=== PATIENT | male | born 1935 | race Caucasian/White ===

== ENCOUNTER 2017-02-11 08:16 | Emergency (ER) | payer MEDICARE ==
[2010-12-17 23:57] VITALS: BMI 27.1
[~2017-02-11 08:16] MED LIST: ERYTHROMYCIN OPT1 GM EACH EYE; GLUCOPHAGE500 MG PO; GLUCOTROL 5 MG T5 MG PO; NITROSTAT0.4 MG SL; PRAVACHOL40 MG PO; PRED-FORTE 1% OP5 ML EACH EYE; PRINIVIL20 MG PO; PROTONIX40 MG PO; TOPROL XL50 MG PO; VITAMIN B-121000 MCG PO; VITAMIN D5000 UNIT PO; ZYLOPRIM300 MG PO
[2017-02-11 09:03] LABS: UDS - AMPHET NEGATIVE QUAL (NEGATIVE); UDS - BARB NEGATIVE QUAL (NEGATIVE); UDS - BENZO NEGATIVE QUAL (NEGATIVE); UDS - COCAINE NEGATIVE QUAL (NEGATIVE); UDS - OPIATE NEGATIVE QUAL (NEGATIVE); UDS - PCP NEGATIVE QUAL (NEGATIVE); UDS - THC NEGATIVE QUAL (NEGATIVE)
[2017-02-11 09:24] LABS: APPEARANCE CLEAR (CLEAR); COLOR YELLOW (YELLOW); GLUCOSE NEGATIVE (NEGATIVE); KETONE MODERATE mg/dL (NEGATIVE); NITRITE NEGATIVE (NEGATIVE); PROTEIN 3+ mg/dL (NEGATIVE); SPECIFIC GRAVITY 1.015 (1.005-1.020)
[2017-02-11 09:25] LABS: BACTERIA FEW /hpf (NONE SEEN); BILIRUBIN NEGATIVE (NEGATIVE); EPITHELIAL CELLS OCC /hpf (0-5); HYALINE CAST OCC /lpf (NONE SEEN); MUCUS <1+ /lpf (NONE SEEN); RED CELLS - URINE RARE /hpf (0-5); WHITE CELLS - URINE RARE /hpf (0-5)
[2017-02-11 09:48] LABS: HEMATOCRIT 42.9 % (42.0-54.0); HEMOGLOBIN 13.9 g/dL (13.5-17.5); MCH 30.3 pg (26.0-34.0); MCHC 32.4 g/dL (31.0-37.0); MCV 93.7 fL (80.0-100.0); MEAN PLATELET VOLUME 9.7 fL (7.4-10.4); NEUTROPHILS 75.6 % (40-80); PLATELET COUNT 209 10x3/uL (130-400); RBC 4.58 10x6/uL (4.20-6.10); RDW 14.9 % (11.5-14.5); WBC 7.1 10x3/uL (4.8-10.8)
[2017-02-11 09:56] LABS: ALBUMIN 3.4 g/dL (3.4-5.0); ALKALINE PHOSPHATASE 87 U/L (46-116); ALT (SGPT) 18 U/L (10-68); BILIRUBIN - TOTAL 1.27 mg/dL (0.2-1.3); CALC OSMOLALITY 280 mosm/kg (275-300); CALCIUM 8.7 mg/dL (8.5-10.1); CARBON DIOXIDE 26.4 mmol/L (21.0-32.0); CHLORIDE - SERUM 99 mmol/L (98-107); CREATINE KINASE 47 UL (21-232); POTASSIUM - SERUM 3.6 mmol/L (3.5-5.1); PROTEIN - SERUM 6.7 g/dL (6.4-8.2); SODIUM 138 mmol/L (136-145); TROPONIN-I 0.018 ng/mL (0.000-0.060); UREA NITROGEN 16 mg/dL (7-18); eGFR NON AFRICAN AMERICAN 76 mL/min (90-120)
[2017-02-11 09:57] LABS: APTT 24.8 SECONDS (22.8-39.4)
[2017-02-11 10:00] LABS: INR 1.11 (0.85-1.17); PROTIME 14.1 SECONDS (11.6-15.0)
[2017-02-11 10:01] LABS: GLUCOSE 166 mg/dL (74-106)
== END 2017-02-11 10:27 | disposition home or self-care (01) ==
LOC: D.ER 08:16
PROVIDERS: Emergency Medicine
DX: F03.90 Unspecified dementia, unspecified severity, without behavioral disturbance, psychotic disturbance, mood disturbance, and anxiety (principal); S00.01XA Abrasion of scalp, initial encounter; S50.311A Abrasion of right elbow, initial encounter; W19.XXXA Unspecified fall, initial encounter; Y93.89 Activity, other specified; Y92.89 Other specified places as the place of occurrence of the external cause; I10 Essential (primary) hypertension

== ENCOUNTER 2017-04-02 16:52 | Inpatient (IN) | payer MEDICARE ==
[~2017-04-02] VITALS: Ht 180.3 cm; Wt 63.6 kg
--- NOTE | ~2017-04-02 | HP ---
PATIENT: FORTINO BENJAMIN MEDICAL RECORD: [id number] ACCOUNT: [id number] LOCATION:[address] : 33 ADMISSION DATE: 04/02/17 HISTORY AND PHYSICAL EXAMINATION DATE OF ADMISSION: 04/02/2017 CHIEF COMPLAINT: Tremor. HISTORY OF PRESENT ILLNESS: The patient is an 81-year-old gentleman who apparently over the past week has been staying with his children. Apparently, he has had some problems with limited range of motion on his right side. Apparently, he began experiencing what was thought to be seizure versus a stroke earlier in the day and presented for followup. PAST MEDICAL HISTORY: Significant that he has had a history of having hypertension. He has had diabetes. He has had cholecystectomy. He has had a pacemaker placed, uric acid kidney stones, and arteriosclerotic heart disease. FAMILY HISTORY: One brother had a CVA. Father of alcohol abuse. Mother's history unknown. ALLERGIES: No known drug allergies. MEDICATIONS: Include allopurinol 300 mg once a day, Aricept 5 mg once a day, lisinopril 20 mg once a day, metformin 500 mg 2 tablets in the morning and 1 at bedtime, metoprolol 50 mg 1 p.o. daily, pantoprazole 40 mg once a day, KCl 10 mEq once a day, pravastatin 40 mg once a day. SOCIAL HISTORY: The patient is accompanied by his children. He does have an upper right gaze. He is aphasic at the present time, although he appears to be awake. He does not answer spontaneously. He does have some weakness on the left side of the face, his hand harvest worker field crop strength. He is unable to follow commands. PHYSICAL EXAMINATION: EYES: Pupils equal, round, and reactive to light. His extraocular movements are intact. His nasal cavity, oral cavity, and oropharynx clear. NECK: Supple. There is no adenopathy. HEART: Has a regular rate. LUNGS: Clear. ABDOMEN: Soft, bowel sounds are positive. EXTREMITIES: Lower extremities have no edema. ASSESSMENT: Possible cerebrovascular accident versus seizure disorder, history of arteriosclerotic heart disease, diabetes mellitus, and hypertension. PLAN: The patient is admitted to the hospital. CT scan will be performed to rule out any hemorrhagic CVA. Also, the patient will have carotid Dopplers. He will be placed on Dilantin for seizure protocol. We will continue to evaluate. TRANSINT:[id number] Voice Confirmation ID: [id number] DOCUMENT ID: [id number] HISTORY AND PHYSICAL [id number] FORTINO BENJAMIN JAMES MD at 1829 CC: [id number] DICTATION DATE: 04/02/171812 LABORER DEMOLITION: 04/02/172257 DIS IN 04/02/17 [place] [id number] [place] [id number]
[2017-04-02] MEDS ORDERED: GLUCOPHAGE500 MG PO (17:39)
[2017-04-02] MEDS ORDERED: ARICEPT5 MG PO (17:40)
[2017-04-02] MEDS ORDERED: K-TAB10 MEQ PO (17:42)
[2017-04-02 17:53] VITALS: Ht 180.3 cm; Wt 63.6 kg
[2017-04-02 18:28] LABS: BASOPHILS 0.1 % (0-2); EOSINOPHILS 0.5 % (0-7); HEMATOCRIT 42.1 % (42.0-54.0); HEMOGLOBIN 13.6 g/dL (13.5-17.5); IMMATURE GRANULOCYTES 0.4 % (0-5); LYMPHOCYTES 22.5 % (15-50); MCH 30.3 pg (26.0-34.0); MCHC 32.3 g/dL (31.0-37.0); MCV 93.8 fL (80.0-100.0); MONOCYTES 7.3 % (2-11); NEUTROPHILS 69.2 % (40-80); RBC 4.49 10x6/uL (4.20-6.10); RDW 14.3 % (11.5-14.5); WBC 13.3 10x3/uL (4.8-10.8)
[2017-04-02 18:38] LABS: PLATELET COUNT 267 10x3/uL (130-400)
[2017-04-02 18:42] LABS: ALBUMIN 3.4 g/dL (3.4-5.0); ANION GAP 26.9 mmol/L (8-16); BILIRUBIN - TOTAL 0.82 mg/dL (0.2-1.3); CALCIUM 9.3 mg/dL (8.5-10.1); CARBON DIOXIDE 14.7 mmol/L (21.0-32.0); CREATININE - SERUM 1.3 mg/dL (0.6-1.3); POTASSIUM - SERUM 4.6 mmol/L (3.5-5.1); PROTEIN - SERUM 7.2 g/dL (6.4-8.2)
[2017-04-02 21:08] VITALS: BP 114/47
== END 2017-04-02 22:02 | DRG 64 ==
LOC: D.M2 16:52
PROVIDERS: Family Medicine
DX: I63.9 Cerebral infarction, unspecified (principal); I62.01 Nontraumatic acute subdural hemorrhage; R56.9 Unspecified convulsions; I10 Essential (primary) hypertension; E11.9 Type 2 diabetes mellitus without complications; Z95.0 Presence of cardiac pacemaker; I25.10 Atherosclerotic heart disease of native coronary artery without angina pectoris

== ENCOUNTER 2017-04-05 14:42 | Inpatient (IN) | payer MEDICARE ==
[~2017-04-05] VITALS: Ht 180.3 cm; Wt 58.5 kg
--- NOTE | ~2017-04-05 | DS ---
PATIENT:FORTINO BENJAMIN :31 MEDICAL RECORD: [id number] DISCHARGE SUMMARY ADMISSION DATE: 04/05/17 DISCHARGE DATE: 04/17/17 This is a discharge dated 04/17/2017 from the inpatient rehab. PRIMARY DIAGNOSIS: 1. 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 2. Oropharyngeal dysphagia. 3. Aphasic. 4. Hypertension. 5. Diabetes. 6. Hyperlipidemia. 7. Hypokalemia. HOSPITAL COURSE: Full H&P is located elsewhere on the chart on this 81-year-old male who was admitted to inpatient rehab for physical therapy and occupational therapy to improve gait, transfer skills, bed mobility, and activities of daily living to a modified independent level. He was evaluated by PT and OT and their plans of care were followed. He was seen by speech therapy for management of oropharyngeal dysphagia and aphasia. He required alf care for observation and assessment and medication administration. Fingerstick blood sugars were monitored throughout his hospital stay with appropriate adjustment in medications as needed. Electrolytes were managed by protocol. He remained on appropriate home medications. He was cooperative with therapies, progressing towards goals. Case management was involved for discharge planning. He was considered stable for discharge on 04/17/2017. DISCHARGE MEDICATIONS: As per discharge medication reconciliation. DISCHARGE DISPOSITION: The patient is discharged home. He will continue his current diet and level of activity and will have home health for continued PT, OT and alf monitoring. He will follow up with primary care and consultants as directed. At least 30 minutes was spent in this discharge activity. TRANSINT:[id number] Voice Confirmation ID: [id number] DOCUMENT ID: [id number] Dictated By: MOHIT HOLBROOK I have interviewed/examined the above patient and agree with these documented findings. MUNA FLORES MD at 1802 at 1437 CC: [id number] DICTATION DATE: 05/12/17 1606 TITLE LAWYER: 05/13/17 0217 DIS IN 04/17/17 [facility] [address] [place] [address]
[~2017-04-05 14:42] MED LIST changes: +ARICEPT5 MG PO; +K-TAB10 MEQ PO
[2017-04-05] MEDS ORDERED: ZYLOPRIM300 MG PO (15:10)
[2017-04-05] MEDS ORDERED: ARICEPT5 MG PO (15:11)
[2017-04-05] MEDS ORDERED: GLUCOTROL 5 MG T5 MG PO (15:12)
[2017-04-05] MEDS ORDERED: TOPROL XL50 MG PO (15:48)
[2017-04-05 18:03] VITALS: BP 135/74; BMI 18.0
[2017-04-05 19:45] VITALS: BP 130/55
[2017-04-06 08:29] VITALS: BP 134/89
[2017-04-06 09:20] LABS: BASOPHILS 0.1 % (0-2); HEMATOCRIT 42.4 % (42.0-54.0); HEMOGLOBIN 13.7 g/dL (13.5-17.5); IMMATURE GRANULOCYTES 0.2 % (0-5); LYMPHOCYTES 22.3 % (15-50); MCH 30.3 pg (26.0-34.0); MCHC 32.3 g/dL (31.0-37.0); MCV 93.8 fL (80.0-100.0); MEAN PLATELET VOLUME 10.2 fL (7.4-10.4); MONOCYTES 6.6 % (2-11); NEUTROPHILS 69.8 % (40-80); PLATELET COUNT 222 10x3/uL (130-400); RBC 4.52 10x6/uL (4.20-6.10); RDW 14.4 % (11.5-14.5); WBC 10.2 10x3/uL (4.8-10.8)
[2017-04-06 09:40] LABS: CALC OSMOLALITY 277 mosm/kg (275-300); CALCIUM 8.6 mg/dL (8.5-10.1); CARBON DIOXIDE 30.3 mmol/L (21.0-32.0); CHLORIDE - SERUM 98 mmol/L (98-107); POTASSIUM - SERUM 3.7 mmol/L (3.5-5.1); SODIUM 136 mmol/L (136-145); UREA NITROGEN 26 mg/dL (7-18); eGFR NON AFRICAN AMERICAN 76 mL/min (90-120)
[2017-04-06 09:41] LABS: GLUCOSE 114 mg/dL (74-106)
[2017-04-06 13:06] VITALS: Ht 180.3 cm; Wt 58.5 kg
[2017-04-06 23:08] VITALS: BP 150/72
[2017-04-07 08:07] VITALS: BP 143/73
[2017-04-07 19:56] VITALS: BP 134/58
[2017-04-08 08:00] VITALS: BP 144/67
[2017-04-08 14:55] LABS: BASOPHILS 0.1 % (0-2); EOSINOPHILS 1.2 % (0-7); HEMATOCRIT 43.9 % (42.0-54.0); IMMATURE GRANULOCYTES 0.4 % (0-5); LYMPHOCYTES 18.8 % (15-50); MCH 30.1 pg (26.0-34.0); MCHC 31.9 g/dL (31.0-37.0); MCV 94.4 fL (80.0-100.0); MEAN PLATELET VOLUME 10.2 fL (7.4-10.4); MONOCYTES 7.9 % (2-11); NEUTROPHILS 71.6 % (40-80); PLATELET COUNT 212 10x3/uL (130-400); RBC 4.65 10x6/uL (4.20-6.10); RDW 14.7 % (11.5-14.5); WBC 7.2 10x3/uL (4.8-10.8)
[2017-04-08 15:09] LABS: CALC OSMOLALITY 275 mosm/kg (275-300); CALCIUM 8.7 mg/dL (8.5-10.1); CARBON DIOXIDE 25.9 mmol/L (21.0-32.0); CHLORIDE - SERUM 101 mmol/L (98-107); CREATININE - SERUM 0.9 mg/dL (0.6-1.3); GLUCOSE 97 mg/dL (74-106); POTASSIUM - SERUM 3.9 mmol/L (3.5-5.1); SODIUM 137 mmol/L (136-145); UREA NITROGEN 19 mg/dL (7-18); eGFR NON AFRICAN AMERICAN 85 mL/min (90-120)
[2017-04-08 19:42] VITALS: BP 185/65
[2017-04-09 08:38] VITALS: BP 146/75
[2017-04-10 02:41] VITALS: BP 141/55
[2017-04-10 07:55] VITALS: BP 134/70
[2017-04-10 20:00] VITALS: BP 136/54
[2017-04-11 08:31] VITALS: BP 136/67
[2017-04-11 20:00] VITALS: BP 126/58
[2017-04-12 07:00] LABS: BASOPHILS 0.3 % (0-2); EOSINOPHILS 1.6 % (0-7); HEMATOCRIT 38.3 % (42.0-54.0); HEMOGLOBIN 12.1 g/dL (13.5-17.5); IMMATURE GRANULOCYTES 0.4 % (0-5); LYMPHOCYTES 31.9 % (15-50); MCH 29.6 pg (26.0-34.0); MCHC 31.6 g/dL (31.0-37.0); MCV 93.6 fL (80.0-100.0); MONOCYTES 10.6 % (2-11); NEUTROPHILS 55.2 % (40-80); PLATELET COUNT 219 10x3/uL (130-400); RBC 4.09 10x6/uL (4.20-6.10); RDW 14.8 % (11.5-14.5); WBC 7.1 10x3/uL (4.8-10.8)
[2017-04-12 07:27] LABS: CALC OSMOLALITY 273 mosm/kg (275-300); CALCIUM 9.1 mg/dL (8.5-10.1); CARBON DIOXIDE 28.7 mmol/L (21.0-32.0); CHLORIDE - SERUM 100 mmol/L (98-107); GLUCOSE 71 mg/dL (74-106); POTASSIUM - SERUM 4.5 mmol/L (3.5-5.1); SODIUM 136 mmol/L (136-145); UREA NITROGEN 24 mg/dL (7-18); eGFR NON AFRICAN AMERICAN 76 mL/min (90-120)
[2017-04-12 19:40] VITALS: BP 121/67
[2017-04-13 08:13] VITALS: BP 156/88
[2017-04-13 19:35] VITALS: BP 134/52
[2017-04-14 08:18] VITALS: BP 148/67
[2017-04-14 19:30] VITALS: BP 141/66
[2017-04-15 07:05] LABS: BASOPHILS 0.3 % (0-2); EOSINOPHILS 0.8 % (0-7); IMMATURE GRANULOCYTES 0.3 % (0-5); MCH 30.2 pg (26.0-34.0); MCHC 31.6 g/dL (31.0-37.0); MCV 95.5 fL (80.0-100.0); MEAN PLATELET VOLUME 9.7 fL (7.4-10.4); MONOCYTES 7.8 % (2-11); NEUTROPHILS 65.8 % (40-80); PLATELET COUNT 221 10x3/uL (130-400); RBC 3.98 10x6/uL (4.20-6.10); RDW 14.8 % (11.5-14.5); WBC 7.9 10x3/uL (4.8-10.8)
[2017-04-15 07:20] LABS: CALC OSMOLALITY 274 mosm/kg (275-300); CALCIUM 8.7 mg/dL (8.5-10.1); CARBON DIOXIDE 26.5 mmol/L (21.0-32.0); CHLORIDE - SERUM 102 mmol/L (98-107); CREATININE - SERUM 0.9 mg/dL (0.6-1.3); GLUCOSE 81 mg/dL (74-106); POTASSIUM - SERUM 4.1 mmol/L (3.5-5.1); SODIUM 137 mmol/L (136-145); UREA NITROGEN 18 mg/dL (7-18); eGFR NON AFRICAN AMERICAN 85 mL/min (90-120)
[2017-04-15 08:00] VITALS: BP 143/59
[2017-04-15 20:00] VITALS: BP 131/47
[2017-04-16 08:00] VITALS: BP 110/44
[2017-04-16] MEDS ORDERED: GLUCOPHAGE500 MG PO (10:17)
[2017-04-16 21:15] VITALS: BP 132/48
[2017-04-17 08:14] VITALS: BP 113/41
== END 2017-04-17 13:53 | disposition home health service (06) | DRG 84 ==
LOC: D.REHAB 14:42
PROVIDERS: Emergency Medicine
DX: S06.5X9A Traumatic subdural hemorrhage with loss of consciousness of unspecified duration, initial encounter (principal); R13.12 Dysphagia, oropharyngeal phase; Z98.890 Other specified postprocedural states; R26.9 Unspecified abnormalities of gait and mobility; R53.1 Weakness; R13.0 Aphagia; R56.9 Unspecified convulsions; W19.XXXA Unspecified fall, initial encounter

== ENCOUNTER 2017-04-19 13:37 | Inpatient (IN) | payer MEDICARE ==
[~2017-04-19] VITALS: Ht 180.3 cm; Wt 62.5 kg
[2017-04-19] VITALS (11 sets, daily range): BP systolic 125–152; BP diastolic 71–88; BMI 20.9
--- NOTE | ~2017-04-19 | OP ---
PATIENT NAME: FORTINO BENJAMIN MEDICAL RECORD: [id number] :31 LOCATION:D.CVI D.CV02 ADMISSION DATE:04/19/17 SURGEON: ANDREW ORTIZ MD DATE OF OPERATION: 04/20/2017 SURGEON: Andrew Ortiz MD ANESTHESIA: General, Dr. Aguila. OPERATIONS PERFORMED: 1. Pulse generator exchange. 2. Pacemaker pocket revision. PREOPERATIVE DIAGNOSIS: Pacemaker end of life. POSTOPERATIVE DIAGNOSIS: Pacemaker end of life. INDICATION FOR OPERATION: Pulse generator end of life. FINDINGS AT OPERATION: The explanted pulse generator Medtronic model #MGX725Z, serial #[id number]. Newly implanted pulse generator Medtronic model #ADDR01, serial #[id number]. ESTIMATED BLOOD LOSS: Less than 5 cc. DESCRIPTION OF PROCEDURE: After informed consent, adequate preoperative medication and evaluation, the patient was brought operating room. After induction of anesthesia and application of appropriate monitoring devices, the left chest prepped and draped in a sterile field utilizing Betadine scrub, alcohol, and Betadine solution. A Betadine-impregnated drape was also used. A 1% lidocaine was infiltrated in the left subclavicular space as well as pulse generator pocket. An incision was made and dissection was carried down to the pulse generator, which was explanted. The leads were mobilized. The leads were tested. They were felt to be good chronic leads. New pulse generator was connected to the leads after hemostasis was achieved. Pacemaker fired, captured, and sensed appropriately. The pacemaker pocket was opened medially and inferiorly to allow placement of the device in the pocket. The pocket was irrigated. Instrument count and sponge count were correct times 2. Pocket was closed in layers utilizing 3-0 Vicryl on the deep subcutaneous tissue, 5-0 subcuticular Monocryl on the skin. Sterile dressings were applied. The patient tolerated the procedure well and was transferred to CV ICU in satisfactory condition. TRANSINT:[id number] Voice Confirmation ID: [id number] DOCUMENT ID: [id number] ANDREW ORTIZ MD at 1319 CC: [id number] DICTATION DATE: 04/20/17 1011 STAPLE CUTTER: 04/20/17 1118 [place] [address]
--- NOTE | ~2017-04-19 | HEMODYNAMI ---
PATIENT:FORTINO BENJAMIN MEDICAL RECORD: [id number] : 33 LOCATION:[place] ADMISSION DATE: 04/19/17 Generatedon:04/19/201716:00 Patient name: FORTINO BENJAMIN Patient #: [id number] SSN: D OB: 1935 Date of study: 04/19/2017 Page: Of Hemodynamic Procedure Report Patient Data Patient Demographics Procedure consent was obtained First Name: FORTINO Gender: Male Last Name: SOURAV : 1935 [facility] Initial: L Age: 81 year(s) Patient #: [id number] Race: Additional ID: [id number] Contact details Address: [address] [place] [address] State: [place] City: [place] Zip code: [address] Admission Admission Data Admission Date: 04/19/2017 Admission Time: 13:37 Height (in.): 67 BSA: 1.91 (m2) Height (cm.): 170.18 BMI: 27.41 (kg/m2) Weight (lbs.): 175 Weight (kg.): 79.38 Procedure Procedure Types Cath Procedure Diagnostic Procedure LHC LHC w/Coronaries w/Grafts Temporary Pacemaker Miscellaneous Procedures Moderate Sedation up to 15 minutes Procedure Description Procedure Date Procedure Date: 04/19/2017 Procedure Start Time: 15:11 Procedure End Time: 15:42 Procedure Staff Name Function Garfield Gay MD Performing Physician Ian Decker RN Nurse Mervin Meade RT Scrub Anat Castellanos RT Monitor Procedure Data Cath Procedure Fluoroscopy Diagnostic fluoroscopy Total fluoroscopy Time: 6.2 time: 6.2 min min Diagnostic fluoroscopy Total fluoroscopy dose: dose: 1014 mGy 1014 mGy Contrast Material Contrast Material Type Amount (ml) Isovue 300 93 Entry Location Entry Primary Successful Side Size Upsize Upsize Entry Closure Succes sful Closure Location (Fr) 1 (Fr) 2 (Fr) Remarks Device Remarks Femoral Right 6 Fr sutured vein Short Femoral Right 6 Fr Exoseal artery Short Estimated blood loss: 10 ml Diagnostic catheters Device Type Used For End Catheter Placement MULTIPACK JL 4.0 5Fr Procedure catheter DIAGNOSTIC AR MOD 5Fr Procedure Catheter ([id number]) DIAGNOSTIC IMT 5Fr Procedure Catheter ([id number]) MULTIPACK Pigtail 5 Fr Ventriculography catheter Procedure Complications No complications Procedure Medications Medication Administration Route Dosage Oxygen NC 4 l/min Lidocaine 2% added to field 20 Heparin Flush Bag added to field 2 bags (1000units/500ml NS) 0.9% NaCl I.V. 100 ml/hr Versed I.V. 0.5 mg Fentanyl I.V. 25 mcg Versed I.V. 0.5 mg Fentanyl I.V. 25 mcg Hemodynamics Rest BSA: 1.91 (m2) O2 Consumption: Estimated: 222.73 (ml/min) O2 Consumption indexed : Estimated:116.61 (ml/min/m) Heart Rate: 77 (bpm) Pressure Samples Time Site Value (mmHg) Purpose Heart Use Rate(bpm) 15:34 LV 148/15,20 Snapshot 80 15:34 LV 150/13,20 EDP 84 15:36 AO 152/69(102) Pullback 80 15:36 LV 144/13,20 Pullback 80 Gradients Valve Time Site 1 Site 2 Mean SEP/DFP Peak To Heart Use (mmHg) (sec/min) Peak Rate (mmHg) (bpm) Aortic 15:35 LV AO 81 Aortic 15:36 LV AO 0 9 0 80 144/13,20 152/69(102) Calculations Valve P-P Mean Valve Index Valve Source Name Gradient Area Flow (cm2) Aortic 0 0 0 0 Snapshots Pre Cath Intra NCS Post Cath Vital Signs Time Heart Resp SPO2 etCO2 NIBP (mmHg) Rhythm Pain Sedation Rate (ipm) (%) (mmHg) Status Level (bpm) 14:54:43 38 23 96 0 163/65(130) 3 0 (11) 10(A) degree , No Heart pain Block 14:59:05 37 22 96 0 161/64(130) 3 0 (11) 10(A) degree , No Heart pain Block 15:03:27 32 17 98 0 153/66(125) 3 0 (11) 10(A) degree , No Heart pain Block 15:07:45 36 16 98 0 155/69(137) 3 0 (11) 10(A) degree , No Heart pain Block 15:12:07 29 17 98 0 151/59(100) 3 0 (11) 9(A) degree , No Heart pain Block 15:16:27 28 14 100 0 138/56(104) 3 0 (11) 9(A) degree , No Heart pain Block 15:20:37 79 18 98 0 128/73(110) Paced 0 (11) 9(A) , No pain 15:24:47 80 15 100 0 119/65(102) Paced 0 (11) 9(A) , No pain 15:28:53 77 15 100 0 131/70(100) Paced 0 (11) 9(A) , No pain 15:33:01 79 15 99 0 139/73(113) Paced 0 (11) 9(A) , No pain 15:37:11 79 15 98 0 142/73(109) Paced 0 (11) 10(A) , No pain 15:42:26 78 16 100 0 144/75(118) Paced 0 (11) 10(A) , No pain Medications Time Medication Route Dose Verified Delivered Reason Notes Effe ctiveness by by 14:56:17 Oxygen NC 4 Garfield Buffie used for l/min Victor Hugo Decker RN procedure 14:56:25 Lidocaine 2% added 20ml Garfield Garfield for local to vial Victor Hugo Gay MD anesthetic field 14:56:30 Heparin Flush added 2 Garfield Garfield used for Bag to bags Victor Hugo Gay MD procedure (1000units/500ml field NS) 14:56:38 0.9% NaCl I.V. 100 Garfield Buffie Per ml/hr Victor Hugo Decker RN physician 15:09:33 Versed I.V. 0.5 Garfield Buffie for mg Victor Hugo Decker RN sedation 15:09:39 Fentanyl I.V. 25 Garfield Buffie for mcg Victor Hugo Decker RN sedation 15:15:45 Versed I.V. 0.5 Garfield Buffie for mg Victor Hugo Decker RN sedation 15:15:49 Fentanyl I.V. 25 Garfield Buffie for mcg Victor Hugo Decker RN sedation Procedure Log Time Note 14:33:19 Informed consent obtained and on chart 14:33:22 Diagnostic Cath Status : Urgent 14:34:17 Mervin Meade RT(R) (CV) sent for patient. Start room use. 14:34:20 Time tracking: Regular hours 14:34:28 Plan of Care:Hemodynamics will remain stable., Cardiac rhythm will remain stable., Comfort level will be maintained., Respiratory function will remain adequate., Patient/ family verbilizes understanding of procedure., Procedure tolerated without complication., Recovers from procedure without complications.. 14:53:14 Patient arrives emergently. 14:53:23 Patient received from ED to [facility] 2 Alert and oriented. Tansferred to table in Supine position. 14:53:24 Warm blankets applied, and keenan hugger turned on for patient comfort. 14:53:25 Correct patient and procedure confirmed by team. 14:53:26 ECG and BP/O2 sat monitors applied to patient. 14:53:30 ECG and BP/O2 sat monitors applied to patient. 14:53:31 Vital chart was started 14:53:39 Baseline sample Acquired. 14:53:50 Rhythm: 3rd degree heart block 14:53:54 Full Disclosure recording started 14:54:10 H&P Date Dictated: 04/19/2017 Emergent; H&P N/A. 14:54:11 Pre-procedure instructions explained to patient. 14:56:17 Oxygen 4 l/min NC was administered by Ian Decker RN; used for procedure; 14:56:25 Lidocaine 2% 20ml vial added to field was administered by Garfield Gay MD; for local anesthetic; 14:56:30 Heparin Flush Bag (1000units/500ml NS) 2 bags added to field was administered by Garfield Gay MD; used for procedure; 14:56:38 0.9% NaCl 100 ml/hr I.V. was administered by Ian Decker RN; Per physician; 15:04:44 IV patent on arrival in right hand with 0.9% NaCl at [facility]. 15:04:51 Right groin area was prepped with chlora-prep and draped in sterile fashion 15:04:52 Alarms reviewed by R. N. 15:04:53 Sharps counted by scrub and verified by R.N. 15:05:08 Use device set Femoral Dx 15:05:12 Use device set Temporary Pacemaker 15:05:15 SHEATH 6FR [place] (IJU292) opened to sterile field. 15:05:24 SHEATH 6FR [place] (DXC002) opened to sterile field. 15:05:28 5Fr J Tip Temporary Pacing Catheter ([id number]) opened to sterile field. 15:05:34 PERCUTANEOUS ENTRY 19GA needle opened to sterile field. 15:05:35 Tegaderm 4 x 4 (1626W) opened to sterile field. 15:05:38 DIAGNOSTIC Multipack 5Fr catheter set (HD0021) opened to sterile field. 15:05:39 ACIST Manifold (36488) opened to sterile field. 15:05:40 ACIST Hand Control (56500) opened to sterile field. 15:05:43 DIAGNOSTIC WIRE .035 260cm J wire (549818) opened to sterile field. 15:05:48 SHEATH 5FR [place] (KMP357) opened to sterile field. 15:05:49 Medline Cath Pack ([id number]) opened to sterile field. 15:05:50 Bag Decanter (2002S) opened to sterile field. 15:05:51 ACIST Syringe (53332) opened to sterile field. 15:06:20 Patient diabetic? Yes. 15:06:22 If diabetic: On Metformin? Yes 15:06:33 If on Metformin: Last Dose? 04/17/2017 15:06:39 Snore? Yes 15:06:42 Sleep apnea? No 15:06:46 Dentures? No ? 15:08:51 Physician arrived 15:08:52 --------ALL STOP TIME OUT------ 15:08:52 Final Timeout: patient, procedure, and site verified with staff and physician. All members of the team are in agreement. 15:09:03 Right groin site verified by team. 15:09:07 Physical assessment completed. ASA score P 4 - A patient with severe systemic disease that is a constant threat to life as per Garfield Gay MD. 15:09:17 Sedation plan: IV Moderate Sedation Medication:Versed, Fentanyl 15:09:27 Zero performed for pressure channel P1 15::33 Versed 0.5 mg I.V. was administered by Ian Decker RN; for sedation; 15::39 Fentanyl 25 mcg I.V. was administered by Ian Decker RN; for sedation; 15:09:57 Zero performed for pressure channel P1 15:10:03 Zero performed for pressure channel P1 15:10:59 Procedure started. 15:11:11 Local anesthetic to right femoral artery with Lidocaine 2% by Garfield Gay MD.INITIAL ACCESS ONLY 15:13:09 Procedure type changed to Cath procedure, Diagnostic procedure, LHC, LHC w/Coronaries w/Grafts, Temporary Pacemaker, Miscellaneous Procedures, Moderate Sedation up to 15 minutes 15:13:17 Patient Height : 67 inches 15:13:29 Patient Weight : 175 lbs 15:13:41 A 6 Fr Short sheath was inserted into the Right Femoral vein 15:15:32 A 6 Fr Short sheath was inserted into the Right Femoral artery 15:15:45 Versed 0.5 mg I.V. was administered by Ian Decker RN; for sedation; 15:15:49 Fentanyl 25 mcg I.V. was administered by Ian Decker RN; for sedation; 15:16:00 Temporary pacer inserted 15:18:19 Temporary pacer turned on with the following settings: Rate 80, MA 3, Mode: Demand. 15:18:48 2.0 Silk 685H opened to sterile field. 15:19:31 RFV sutured in. 15:19:53 A MULTIPACK JL 4.0 5Fr catheter was advanced over the wire and used for Procedure. 15:22:41 LCA angiography performed. 15:24:15 Catheter removed. 15:25:28 A DIAGNOSTIC AR MOD 5Fr Catheter ([id number]) was advanced over the wire and used for Procedure. 15:26:03 RCA angiography performed. 15:27:37 SVG to OM angiography performed. 15:27:57 SVG to RPDA angiography performed. 15:28:44 Catheter removed. 15:29:40 A DIAGNOSTIC IMT 5Fr Catheter ([id number]) was advanced over the wire and used for Procedure. 15:30:09 ASCENCIO to LAD angiography performed. 15:30:31 Temporary pacer turned on with the following settings: Rate 80, MA 4, Mode: Demand. 15:32:36 Catheter removed. 15:33:21 A MULTIPACK Pigtail 5 Fr catheter was advanced over the wire and used for Ventriculography. 15:35:43 EF : 15 % 15:36:17 EXOSEAL 5Fr (EX500) opened to sterile field. 15:36:31 Catheter removed. 15:36:55 Sheath removed intact; hemostasis achieved with Exoseal to the Right Femoral artery. 15:36:58 Procedure ended.(Physican Out) 15:39:23 Fluoroscopy time 06.20 minutes. 15:39:27 Fluoroscopy dose: 1014 mGy 15:39:27 Flurop Dose total: 1014 15:39:30 Contrast amount:Isovue 300 93ml. 15:39:32 Sharps counted by scrub and verified by R.N. 15:39:33 Insertion/operative site no bleeding no hematoma. 15:39:37 Post-op/insertion site Right Femoral artery dressed using a 4 x 4 and Tegaderm. 15:39:45 Post-op/insertion site Right Femoral vein dressed using a 4 x 4 and Tegaderm. 15:39:52 Post right femoral artery:stable 15:39:55 Post Procedure Pulses reassessed and unchanged 15:40:01 Post-procedure physical assessment completed. ASA score P 4 - A patient with severe systemic disease that is a constant threat to life as per Garfield Gay MD. 15:40:13 Post procedure rhythm: paced 15:40:16 Estimated blood loss: 10 ml 15:40:17 Post procedure instruction explained to patient.Patient verbalizes understanding. 15:40:18 Patient needs reinforcement of post procedure teaching. 15:40:30 Procedure and supply charges have been captured, reviewed, submitted and are correct. 15:41:01 Procedure Complication : No complications 15:41:03 Vital chart was stopped 15:41:04 See physician's report for complete and final results. 15:41:07 Report given to CVICU. 15:41:59 Patient transfered to CVICU with Stretcher. 15:42:01 Procedure ended. 15:42:01 Full Disclosure recording stopped 15:49:30 Temp pacer set at 80 at 3MA 15:49:33 End room use (Document Last) Device Usage Item Name Manufacture Quantity Catalog Number Hospital Part Current Mini mal Lot# / Charge Number Stock Stock Serial# Code SHEATH 6FR Terumo 2 [id number] 40 [place] (EAG771) 5Fr J Tip Brunner 1 [id number] 816701 80094 869165 2 Temporary Lifesciences Pacing Catheter ([id number]) PERCUTANEOUS [place] [employer] 1 [id number] 678790 760633 5 ENTRY 19GA needle Tegaderm 4 x 3M 1 1626W 133728 857482 278131 5 4 (1626W) DIAGNOSTIC Cardinal 1 [id number] 147700 77950 127533 30 Multipack Health 5Fr catheter set (PY7081) ACIST Acist 1 98062 118872 158444 704031 5 Manifold Medical (28251) Systems Inc ACIST Hand Acist 1 11045 455236 769126 356928 5 Control Medical (89806) Systems Inc DIAGNOSTIC St [place] 1 884940 314696 532054 574495 30 WIRE .035 260cm J wire (142376) SHEATH 5FR Terumo 1 KIZ169 402644 140033 251678 40 [place] (SZF762) Medline Cath Cardinal 1 [id number] 959826 75818 029879 5 Pack Health ([id number]) Bag Decanter Microtek 1 2001S 183348 27346 467745 5 (2001S) Medical Inc. ACIST Acist 1 35438 585228 038145 379137 20 Syringe Medical (51570) Systems Inc 2.0 Silk Ethicon 1 685H 153321 78674 114610 5 685H MULTIPACK JL Cardinal 1 296788 5 4.0 5Fr Health catheter DIAGNOSTIC Cardinal 1 [id number] 946778 762652 542465 15 AR MOD 5Fr Health Catheter (312516J) DIAGNOSTIC Ruth 1 [id number] 708447 016062 73604 5 IMT 5Fr Scientific Catheter ([id number]) MULTIPACK Cardinal 1 978890 5 Pigtail 5 Fr Health catheter EXOSEAL 5Fr Cardinal 1 EX500 899915 940406 185000 10 (EX500) Health Signature Audit [place] Stage Time Signature Unsigned Intra-Procedure 04/19/2017 Anat Castellanos 4:00:23 PM RT(R) Signatures Monitor : Anat Castellanos Signature : RT Date : Time : [facility] [address] [place] [address]
[2017-04-19 13:59] LABS: BASOPHILS 0.2 % (0-2); EOSINOPHILS 0.6 % (0-7); HEMATOCRIT 39.9 % (42.0-54.0); HEMOGLOBIN 12.3 g/dL (13.5-17.5); IMMATURE GRANULOCYTES 1.2 % (0-5); LYMPHOCYTES 41.9 % (15-50); MCH 30.1 pg (26.0-34.0); MCHC 30.8 g/dL (31.0-37.0); MCV 97.8 fL (80.0-100.0); MONOCYTES 6.5 % (2-11); NEUTROPHILS 49.6 % (40-80); PLATELET COUNT 212 10x3/uL (130-400); RBC 4.08 10x6/uL (4.20-6.10); RDW 15.6 % (11.5-14.5); WBC 16.3 10x3/uL (4.8-10.8)
[2017-04-19 14:11] LABS: INR 1.22 (0.85-1.17)
[2017-04-19 14:16] LABS: ALBUMIN 3.4 g/dL (3.4-5.0); ALKALINE PHOSPHATASE 141 U/L (46-116); ALT (SGPT) 63 U/L (10-68); BILIRUBIN - TOTAL 0.71 mg/dL (0.2-1.3); CALC OSMOLALITY 300 mosm/kg (275-300); CALCIUM 9.2 mg/dL (8.5-10.1); CARBON DIOXIDE 15.1 mmol/L (21.0-32.0); CHLORIDE - SERUM 106 mmol/L (98-107); CREATININE - SERUM 1.5 mg/dL (0.6-1.3); POTASSIUM - SERUM 4.1 mmol/L (3.5-5.1); PROTEIN - SERUM 6.7 g/dL (6.4-8.2); SODIUM 143 mmol/L (136-145); UREA NITROGEN 44 mg/dL (7-18); eGFR NON AFRICAN AMERICAN 47 mL/min (90-120)
[2017-04-19 14:23] LABS: GLUCOSE 194 mg/dL (74-106)
[2017-04-19 14:32] LABS: CKMB 1.7 U/L (0.0-3.6); CREATINE KINASE 71 UL (21-232); MAGNESIUM - SERUM 2.1 mg/dL (1.8-2.4)
[2017-04-19 14:43] LABS: TROPONIN-I 0.102 ng/mL (0.000-0.060)
[2017-04-19 15:24] LABS: APTT 25.2 SECONDS (22.8-39.4)
[2017-04-19 17:17] LABS: HEMOGLOBIN 12.8 g/dL (13.5-17.5); MCH 29.8 pg (26.0-34.0); MCHC 30.5 g/dL (31.0-37.0); MCV 97.9 fL (80.0-100.0); MEAN PLATELET VOLUME 10.7 fL (7.4-10.4); RBC 4.29 10x6/uL (4.20-6.10); RDW 15.7 % (11.5-14.5)
[2017-04-19 17:24] LABS: ANION GAP 23.8 mmol/L (8-16); CALCIUM 8.8 mg/dL (8.5-10.1); CREATININE - SERUM 1.4 mg/dL (0.6-1.3)
[2017-04-19 18:02] LABS: POTASSIUM - SERUM 4.8 mmol/L (3.5-5.1)
[2017-04-20] VITALS (33 sets, daily range): BP systolic 122–150; BP diastolic 55–90; Ht 180.3 cm; Wt 62.5 kg
[2017-04-21] VITALS (45 sets, daily range): BP systolic 113–145; BP diastolic 55–95
[2017-04-22] VITALS (22 sets, daily range): BP systolic 117–150; BP diastolic 57–100
[2017-04-23] VITALS (9 sets, daily range): BP systolic 118–144; BP diastolic 58–68
== END 2017-04-23 14:18 | disposition home health service (06) | DRG 259 ==
LOC: D.ER 13:37 → D.OPS 13:37 → D.ER 13:37 → EDSTATUS 15:00 → D.CVICU 17:08 → D.OPS 17:09 → D.CVICU 17:10
PROVIDERS: Emergency Medicine; Internal Medicine Cardiovascular Disease
PROC: B2111ZZ Fluoroscopy of Multiple Coronary Arteries using Low Osmolar Contrast (ICD-10-PCS; 2017-04-19)
PROC: B2131ZZ Fluoroscopy of Multiple Coronary Artery Bypass Grafts using Low Osmolar Contrast (ICD-10-PCS; 2017-04-19)
PROC: B2151ZZ Fluoroscopy of Left Heart using Low Osmolar Contrast (ICD-10-PCS; 2017-04-19)
PROC: 4A023N7 Measurement of Cardiac Sampling and Pressure, Left Heart, Percutaneous Approach (ICD-10-PCS; 2017-04-19)
PROC: 5A1223Z Performance of Cardiac Pacing, Continuous (ICD-10-PCS; 2017-04-19)
PROC: 0JH606Z Insertion of Pacemaker, Dual Chamber into Chest Subcutaneous Tissue and Fascia, Open Approach (ICD-10-PCS; 2017-04-20)
PROC: 0JPT0PZ Removal of Cardiac Rhythm Related Device from Trunk Subcutaneous Tissue and Fascia, Open Approach (ICD-10-PCS; principal; 2017-04-20 08:00)
DX: I44.2 Atrioventricular block, complete (principal); I42.9 Cardiomyopathy, unspecified; Z45.010 Encounter for checking and testing of cardiac pacemaker pulse generator [battery]; I47.1 Supraventricular tachycardia; I25.10 Atherosclerotic heart disease of native coronary artery without angina pectoris; E11.9 Type 2 diabetes mellitus without complications; F03.90 Unspecified dementia, unspecified severity, without behavioral disturbance, psychotic disturbance, mood disturbance, and anxiety; N40.0 Benign prostatic hyperplasia without lower urinary tract symptoms; I10 Essential (primary) hypertension; Z95.1 Presence of aortocoronary bypass graft; Z95.5 Presence of coronary angioplasty implant and graft; Z86.73 Personal history of transient ischemic attack (TIA), and cerebral infarction without residual deficits

== ENCOUNTER 2017-08-12 20:05 | Emergency (ER) | payer MEDICARE ==
[2017-04-20 10:38] VITALS: BMI 20.7
[2017-08-12 20:41] LABS: BASOPHILS 0.3 % (0-2); EOSINOPHILS 0.4 % (0-7); HEMATOCRIT 38.7 % (42.0-54.0); HEMOGLOBIN 12.5 g/dL (13.5-17.5); IMMATURE GRANULOCYTES 0.3 % (0-5); LYMPHOCYTES 18.5 % (15-50); MCH 29.8 pg (26.0-34.0); MCHC 32.3 g/dL (31.0-37.0); MCV 92.1 fL (80.0-100.0); MEAN PLATELET VOLUME 9.3 fL (7.4-10.4); MONOCYTES 6.8 % (2-11); NEUTROPHILS 73.7 % (40-80); RDW 14.8 % (11.5-14.5); WBC 9.9 10x3/uL (4.8-10.8)
[2017-08-12 20:49] LABS: APTT 24.9 SECONDS (22.8-39.4); INR 1.08 (0.85-1.17); PLATELET COUNT 247 10x3/uL (130-400); PROTIME 13.6 SECONDS (11.6-15.0)
[2017-08-12 20:55] LABS: ALBUMIN 3.2 g/dL (3.4-5.0); ALKALINE PHOSPHATASE 112 U/L (46-116); ALT (SGPT) 17 U/L (10-68); CALC OSMOLALITY 280 mosm/kg (275-300); CARBON DIOXIDE 26.1 mmol/L (21.0-32.0); CHLORIDE - SERUM 101 mmol/L (98-107); GLUCOSE 130 mg/dL (74-106); POTASSIUM - SERUM 3.8 mmol/L (3.5-5.1); PROTEIN - SERUM 7.4 g/dL (6.4-8.2); SODIUM 139 mmol/L (136-145); UREA NITROGEN 15 mg/dL (7-18); eGFR NON AFRICAN AMERICAN 76 mL/min (90-120)
[2017-08-12 21:03] LABS: CREATINE KINASE 61 UL (21-232); PRO BNP 4173 pg/mL (0-450); TROPONIN-I < 0.017 ng/mL (0.000-0.060)
[2017-08-12 22:48] LABS: APPEARANCE CLEAR (CLEAR); BILIRUBIN NEGATIVE (NEGATIVE); COLOR YELLOW (YELLOW); GLUCOSE NEGATIVE (NEGATIVE); KETONE NEGATIVE (NEGATIVE); NITRITE NEGATIVE (NEGATIVE); PROTEIN NEGATIVE (NEGATIVE); UROBILINOGEN NORMAL (NORMAL)
== END 2017-08-13 00:57 | disposition other institution (70) ==
LOC: D.ER 20:05
PROVIDERS: Family Medicine
DX: J18.9 Pneumonia, unspecified organism (principal); I63.9 Cerebral infarction, unspecified; G81.91 Hemiplegia, unspecified affecting right dominant side; F03.90 Unspecified dementia, unspecified severity, without behavioral disturbance, psychotic disturbance, mood disturbance, and anxiety; I10 Essential (primary) hypertension; I25.10 Atherosclerotic heart disease of native coronary artery without angina pectoris

== ENCOUNTER 2017-12-27 08:18 | Inpatient (IN) | payer MEDICARE ==
[~2017-12-27] VITALS: Ht 180.3 cm; Wt 75.0 kg
--- NOTE | ~2017-12-27 | DS ---
PATIENT:FORTINO BENJAMIN :31 MEDICAL RECORD: [id number] DISCHARGE SUMMARY ADMISSION DATE: 12/27/17 DISCHARGE DATE: 12/29/17 DATE OF DISCHARGE: 12/28/2017 DIAGNOSES: 1. Angina. 2. Coronary artery disease. 3. Percutaneous transluminal coronary angioplasty stent of left circumflex this admission. 4. Status post coronary bypass graft surgery. 5. Hypertension. 6. Hyperlipidemia. HOSPITAL COURSE: Mr. Benjamin presents with unstable anginal symptomatology, found to have critical disease of the left circumflex, underwent successful PTCA stent of the left circumflex, had minor bleeding complication. It was resolved with FemoStop, stayed overnight. No further bleeding the next day. No further angina. Discharged home with the addition of aspirin and Plavix to his medical regimen. He will follow up with [facility] in 1 month. TRANSINT:[id number] Voice Confirmation ID: [id number] DOCUMENT ID: [id number] DA SWANSON MD at 1823 CC: [id number] DICTATION DATE: 12/28/17 1000 FOREST FIRE EQUIPMENT OPERATOR: 12/28/17 1011 DIS IN 12/29/17 [facility] [address] [place] [id number]
--- NOTE | ~2017-12-27 | OP ---
PATIENT NAME: FORTINO BENJAMIN MEDICAL RECORD: [id number] :33 LOCATION:D.M2 D.1 ADMISSION DATE:12/27/17 SURGEON: DA SWANSON MD DATE OF OPERATION: 12/27/2017 PROCEDURES: 1. PTCA stent left circumflex. 2. Left heart catheterization. 3. Selective coronary angiography. 4. Vein graft angiography. 5. ASCENCIO angiography. 6. Left ventriculogram. INDICATION: Angina and coronary artery disease. PROCEDURE IN DETAIL: After informed consent was obtained and after detailed explanation of risks, benefits as well as alternative therapies, the patient elected to proceed with angiogram and angioplasty. The right femoral area was prepped and draped in normal sterile fashion. Right femoral artery was cannulated via modified Seldinger technique with placement of 6-Greenlandic sheath. All catheters exchanged through this sheath. FINDINGS: The left ventriculogram was performed in a standard 30-degree LOPEZ view, reveals global hypokinesis throughout all segments. Overall ejection fraction is 20%. SELECTIVE CORONARY ANGIOGRAPHY: 1. Left main is with no significant angiographic disease. 2. Left anterior descending is totally occluded. 3. ASCENCIO to the LAD is widely patent. 4. Left circumflex has an 80% to 85% stenosis throughout the proximal aspect. There is a first obtuse marginal that is totally occluded. This obtuse marginal was grafted; however, does not backfill the circumflex itself. 5. Right coronary artery is totally occluded. 6. Vein graft skipping from the circumflex portion of that continuing onto the distal RCA is patent. The distal RCA is small and diffusely diseased, but patent. PTCA STENT OF THE LEFT CIRCUMFLEX: Stents used were 3.0 x 15 mm Integrity times 2. The result was 0% residual stenosis. OVERALL IMPRESSION: Successful percutaneous transluminal coronary angioplasty stent of the left circumflex going from 80% to 85% initial stenosis to 0% residual. TRANSINT:[id number] Voice Confirmation ID: [id number] DOCUMENT ID: [id number] OPERATIVE REPORT [id number] FORTINO BENJAMIN JEFFREY MD at 1823 CC: [id number] DICTATION DATE: 12/27/17 1536 WELFARE OFFICER: 12/27/17 1635 DIS IN 12/29/17 [facility] [address] [facility] [place] [address]
--- NOTE | ~2017-12-27 | CN ---
PATIENT NAME:FORTINO BENJAMIN MEDICAL RECORD: [id number] : 31 LOCATION:D.CAT ADMIT DATE: ACCOUNT: [id number] CONSULTING PHYSICIAN: DA SWANSON MD REFERRING PHYSICIAN: MAURICE MILLER MD DATE OF CONSULTATION: 12/27/2017 DIAGNOSES: 1. Unstable angina. 2. Coronary artery disease. 3. 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 4. Sick sinus syndrome, status post pacemaker. 5. Hypertension. 6. Hyperlipidemia. HISTORY OF PRESENT ILLNESS: This is a gentleman who presents with anginal symptomatology, chest pain radiating to his back, radiating to his jaw. He does have a history of coronary artery disease, coronary artery bypass graft surgery 15 years ago, status post pacemaker replacement in April of this year. The pacemaker appears to be functioning normally. He has a history of diverticulitis, but this is different than his diverticular pain. His EKG is significant for a left bundle, but it is paced from his initial EKG. He initially had T-wave inversions in the lateral leads. Now, he has upright T waves in the lateral leads, possible ST elevation. He continues to have pain. PHYSICAL EXAMINATION: GENERAL APPEARANCE: Well-nourished, well-developed, appears stated age. Level of distress, comfortable. PSYCHIATRIC: Mental status, alert, normal affect. Orientation, oriented to time, place and person. EYES: Lids and conjunctiva, noninjected. No discharge, no pallor. ENT: Lips, teeth, gums, normal dentition. Oropharynx, no cyanosis, no pallor. NECK: Carotid arteries, bilateral normal upstroke, no bruits, no thrills. JUGULAR VEINS: No jugular venous pressure or distention. CERVICAL LYMPH NODES: Nontender, nonenlarged. THYROID: Not enlarged. Nontender. No nodules. LUNGS: Respiratory effort, unlabored. CHEST: Normal curvature. No thoracic deformity. No chest wall tenderness. Percussion, resonant. Auscultation, clear. No wheezes, no rales, no rhonchi. CARDIOVASCULAR: Precordial exam, nondisplaced. No heaves or pericardial thrills. Rate and rhythm, regular. Heart sounds, normal S1, normal S2. No S3, no gallop, no rub. Systolic murmur, not heard. Diastolic murmur, not heard. EXTREMITIES: No cyanosis, no edema. Peripheral pulses, full and equal in all extremities, except as noted. No bruits appreciated. ABDOMEN: Soft, nondistended. Normal aorta. No bruit. Nontender. No masses. Liver, nontender, no hepatomegaly. Spleen, nontender, no splenomegaly. MUSCULOSKELETAL: No joint tenderness. No joint swelling. No erythema. NEUROLOGICAL: Normal gait, normal strength, normal tone. SKIN: Warm and dry. REVIEW OF SYSTEMS: The patient reports easy bruising but reports no swollen glands. The patient reports no fever, no night sweats, no significant weight gain, no significant weight loss. No significant exercise tolerance. The patient reports no dry eyes, no irritation, no vision change. Patient reports no difficulty hearing and no ear pain. Patient reports no frequent nose bleeds CONSULT REPORT [id number] FORTINO BENJAMIN or nose and sinus problems. Patient reports on arm pain on exertion. No shortness of breath while lying down. No history of heart murmur. Patient reports no cough, no wheezing or coughing up blood. Patient reports no abdominal pain, no vomiting. Normal appetite. No diarrhea and not vomiting blood. No nausea and no constipation. Patient reports no incontinence. No difficulty urinating. No hematuria. No increased frequency. Patient reports no muscle aches. No weakness, no arthralgias, no back pain. No swelling of the extremities. Patient reports no abnormal mole, no jaundice, no rashes. Reports no loss of consciousness. No weakness and no numbness. No seizures, dizziness, or headaches. The patient reports no depression, no sleep disturbance, feeling safe in a relationship and no alcohol abuse. Patient reports on fatigue. Reports no runny nose or sinus pressure. No itching, no hives, and no frequent sneezing. OVERALL IMPRESSION: Unstable angina with continued pain. We will proceed with coronary angiography. Further care depends upon findings of the angiography. TRANSINT:[id number] Voice Confirmation ID: [id number] DOCUMENT ID: [id number] DA SWANSON MD at 1616 CC: [id number] DICTATION DATE: 12/27/17 1410 [employer] TE[employer]ER: 12/27/17 1427 [address] [place] [address]
--- NOTE | ~2017-12-27 | HEMODYNAMI ---
PATIENT:FORTINO BENJAMIN MEDICAL RECORD: [id number] : 31 LOCATION:DAugustCAT ADMISSION DATE: 12/27/17 Generatedon:12/27/201715:37 Patient name: FORTINO BENJAMIN Patient #: [id number] SSN: D OB: 1935 Date of study: 12/27/2017 Page: Of Hemodynamic Procedure Report Patient Data Patient Demographics Procedure consent was obtained First Name: FORTINO Gender: Male Last Name: SOURAV : 1935 [facility] Initial: L Age: 82 year(s) Patient #: [id number] Race: Additional ID: [id number] Contact details [address]: [address] [place] [address] State: [place] City: [place] Zip code: [address] Past Medical History Allergies Allergen Reaction Date Comments Reported Other allergy 12/27/2017 mORPHINE, pcn Admission Admission Data Admission Date: 12/27/2017 Admission Time: 8:18 Procedure Procedure Types Cath Procedure Diagnostic Procedure LHC LHC w/Coronaries w/Grafts PCI Procedure Coronary Stent Coronary Stent Initial Procedure Description Procedure Date Procedure Date: 12/27/2017 Procedure Start Time: 15:04 Procedure End Time: 15:35 Procedure Staff Name Function Wilfredo Hawk MD Performing Physician Anat Castellanos RT Monitor Carrie Yen RT Scrub Kirit Elias RN Nurse Procedure Data Cath Procedure Fluoroscopy Diagnostic fluoroscopy Total fluoroscopy Time: time: 10.1 min 10.1 min Diagnostic fluoroscopy Total fluoroscopy dose: dose: 1265 mGy 1265 mGy Contrast Material Contrast Material Type Amount (ml) Isovue 300 156 Entry Location Entry Primary Successful Side Size Upsize Upsize Entry Closure Succes sful Closure Location (Fr) 1 (Fr) 2 (Fr) Remarks Device Remarks Femoral Right 6 Fr Exoseal artery Short Estimated blood loss: 10 ml Diagnostic catheters Device Type Used For End Catheter Placement MULTIPACK Pigtail 5 Fr Procedure catheter MULTIPACK JL 4.0 5Fr Procedure catheter MULTIPACK 3DRC 5Fr Procedure catheter Procedure Complications No complications Procedure Medications Medication Administration Route Dosage Oxygen etCO2 Nasal cannula 2 l/min Heparin Flush Bag added to field 2 bags (1000units/500ml NS) 0.9% NaCl I.V. 100 ml/hr Fentanyl I.V. 50 mcg Versed I.V. 1 mg Lopressor I.V. 5 mg Fentanyl I.V. 50 mcg Versed I.V. 1 mg Heparin Bolus I.V. 4000 units Integrilin (Bolus I.V. 6.8 ml 2mg/ml) Integrilin (Bolus wasted 3.2 ml 2mg/ml) Plavix P.O. 600 mg Hemodynamics Rest Heart Rate: 90 (bpm) Snapshots Pre Cath Intra NCS Post Cath Vital Signs Time Heart Resp SPO2 etCO2 NIBP (mmHg) Rhythm Pain Sedation Rate (ipm) (%) (mmHg) Status Level (bpm) 14:47:29 98 17 99 0 153/96(130) NSR 0 (11) 10(A) , No pain 14:52:20 100 17 98 0 147/90(118) NSR 0 (11) 10(A) , No pain 14:57:09 90 17 100 0 142/81(120) NSR 0 (11) 10(A) , No pain 15:01:56 90 16 99 15.7 132/83(113) NSR 0 (11) 9(A) , No pain 15:06:42 80 17 100 31.4 135/79(119) NSR 0 (11) 9(A) , No pain 15:11:29 85 16 100 24.7 141/88(123) NSR 0 (11) 9(A) , No pain 15:16:10 84 16 96 26.2 132/78(114) NSR 0 (11) 9(A) , No pain 15:20:53 86 16 96 15.7 118/69(98) NSR 0 (11) 9(A) , No pain 15:25:37 69 17 98 15.7 125/69(100) NSR 0 (11) 9(A) , No pain 15:30:20 87 17 98 9.7 136/89(118) NSR 0 (11) 9(A) , No pain 15:34:26 91 16 99 28.4 149/90(129) NSR 0 (11) 9(A) , No pain Medications Time Medication Route Dose Verified Delivered Reason Notes Effectiveness by by 14:54:20 Oxygen etCO2 2 Wilfredo Chisholmy Per physician Nasal l/min Carine Elias RN cannula 14:54:28 Heparin Flush added 2 Wilfredo Chisholmy used for Bag to bags Carine Elias RN procedure (1000units/500ml field NS) 14:54:37 0.9% NaCl I.V. 100 Wilfredo Chisholmy Per physician ml/hr Carine Elias RN 14:55:27 Fentanyl I.V. 50 Wilfredo Kirit for sedation mcg Carine Elias RN 14:55:34 Versed I.V. 1 mg Wilfredo Chisholmy for sedation Carine Elias RN 15:04:34 Lopressor I.V. 5 mg Wilfredo Beth Per physician Carine Elias RN 15:17:36 Fentanyl I.V. 50 Wilfredo Chisholmy for sedation mcg Carine Elias RN 15:17:40 Versed I.V. 1 mg Wilfredo Beth for sedation Carine Elias RN 15:17:50 Heparin Bolus I.V. 4000 Wilfredo Chisholmy for units Carine Elias RN anticoagulation 15:18:02 Integrilin I.V. 6.8 Wilfredo Kirit Per physician (Bolus 2mg/ml) ml Carine Elias RN 15:18:11 Integrilin wasted 3.2 Wilfredo Chisholmy Per physician (Bolus 2mg/ml) ml Carine Elias RN 15:35:05 Plavix P.O. 600 Wilfredo Chisholmy for mg Carine Elias RN antiplatelet therapy Procedure Log Time Note 14:29:15 Signed procedure consent form obtained from patient. 14:29:18 Time tracking: Regular hours (M-F 7:00 - 5:00) 14:29:44 Plan of Care:Hemodynamics will remain stable., Cardiac rhythm will remain stable., Comfort level will be maintained., Respiratory function will remain adequate., Patient/ family verbilizes understanding of procedure., Procedure tolerated without complication., Recovers from procedure without complications.. 14:40:59 Patient received from Pre/Post Procedure Room to [facility] 1 Alert and oriented. Tansferred to table in Supine position. 14:41:02 Warm blankets applied, and keenan hugger turned on for patient comfort. 14:41:02 Correct patient and procedure confirmed by team. 14:41:03 ECG and BP/O2 sat monitors applied to patient. 14:46:26 Vital chart was started 14:52:13 Baseline sample Acquired. 14:52:20 Rhythm: paced 14:52:22 Full Disclosure recording started 14:52:33 H&P Date Dictated: 12/27/2017 Emergent; H&P N/A. 14:52:35 Pre-procedure instructions explained to patient. 14:52:37 Family in waiting room. 14:52:42 Patient NPO since Breakfast. 14:53:00 Patient allergic to Other allergymORPHINE, pcn 14:53:15 Is the patient allergic to Iodine/contrast media? No. 14:53:18 Was the patient premedicated? Yes 14:53:22 Is patient on blood thinner?Unknown 14:53:24 Patient diabetic? Unknown. 14:53:28 Snore? Yes 14:53:30 Sleep apnea? Unknown 14:53:34 Airway obstruction? Unknown ? 14:54:05 If diabetic: On Metformin? Yes 14:54:09 Dentures? Yes ? 14:54:20 Oxygen 2 l/min etCO2 Nasal cannula was administered by Kirit Elias RN; Per physician; 14:54:23 IV patent on arrival in left antecubital with 0.9% NaCl at [facility]. 14:54:27 Lab results completed and on chart. 14:54:28 Heparin Flush Bag (1000units/500ml NS) 2 bags added to field was administered by Kirit Elias RN; used for procedure; 14:54:32 Right groin area was prepped with chlora-prep and draped in sterile fashion 14:54:33 Alarms reviewed by R. N. 14:54:33 Sharps counted by scrub and verified by R.N. 14:54:34 Physician paged 14:54:36 Physician arrived 14:54:37 0.9% NaCl 100 ml/hr I.V. was administered by Kirit Elias RN; Per physician; 14:54:37 --------ALL STOP TIME OUT------ 14:54:37 Final Timeout: patient, procedure, and site verified with staff and physician. All members of the team are in agreement. 14:54:40 Right groin site verified by team. 14:54:44 Physical assessment completed. ASA score P 2 - A patient with mild systemic disease as per Wilfredo Hawk MD. 14:54:50 Sedation plan: IV Moderate Sedation Medication:Versed, Fentanyl 14:54:56 Use device set Femoral Dx 14:54:59 ACIST Syringe (05001) opened to sterile field. 14:55:00 Bag Decanter (2002S) opened to sterile field. 14:55:00 Medline Cath Pack ([id number]) opened to sterile field. 14:55:01 DIAGNOSTIC WIRE .035 260cm J wire (979496) opened to sterile field. 14:55:02 ACIST Hand Control (79566) opened to sterile field. 14:55:03 ACIST Manifold (30358) opened to sterile field. 14:55:04 DIAGNOSTIC Multipack 5Fr catheter set ([id number]) opened to sterile field. 14:55:04 Tegaderm 4 x 4 (1626W) opened to sterile field. 14:55:05 PERCUTANEOUS ENTRY 19GA needle opened to sterile field. 14:55:08 SHEATH Prelude 5Fr 0.035 (MDL-7F-35-035) opened to sterile field. 14:55:27 Fentanyl 50 mcg I.V. was administered by Kirit Elias RN; for sedation; 14:55:34 Versed 1 mg I.V. was administered by Kirit Elias RN; for sedation; 15:03:48 Zero performed for pressure channel P1 15:03:58 Procedure started. 15:04:10 Local anesthetic to right femoral artery with Lidocaine 2% by Wilfredo Hawk MD.INITIAL ACCESS ONLY 15:04:24 A 6 Fr Short sheath was inserted into the Right Femoral artery 15:04:34 Lopressor 5 mg I.V. was administered by Kirit Elias RN; Per physician; 15:05:35 A MULTIPACK Pigtail 5 Fr catheter was advanced over the wire and used for Procedure. 15:05:52 EF : 20 % 15:06:00 Catheter removed. 15:06:29 A MULTIPACK JL 4.0 5Fr catheter was advanced over the wire and used for Procedure. 15:07:22 LCA angiography performed. 15:07:26 Catheter removed. 15:07:36 A MULTIPACK 3DRC 5Fr catheter was advanced over the wire and used for Procedure. 15:07:57 ASCENCIO to LAD angiography performed. 15:08:28 SVG to OM angiography performed. 15:08:48 RCA angiography performed. 15:08:55 Catheter removed. 15:08:59 GUIDE 5FR AR 2.0 catheter (MI1TY60) opened to sterile field. 15:15:24 SVG to Ramus angiography performed. 15:15:29 Catheter removed. 15:16:02 GUIDE 6FR XBLAD 4.0 catheter ([id number]) opened to sterile field. 15:16:07 Proceeding to intervention. 15:17:26 6 Fr XBLAD4 guide catheter was inserted over the wire 15:17:36 Fentanyl 50 mcg I.V. was administered by Kirit Elias RN; for sedation; 15:17:38 CHOICE PT EX wire advanced. 15:17:40 Versed 1 mg I.V. was administered by Kirit Elias RN; for sedation; 15:17:50 Heparin Bolus 4000 units I.V. was administered by Kirit Elias RN; for anticoagulation; 15:18:02 Integrilin (Bolus 2mg/ml) 6.8 ml I.V. was administered by Kirit Elias RN; Per physician; 15:18:11 Integrilin (Bolus 2mg/ml) 3.2 ml wasted was administered by Kirit Elias RN; Per physician; 15:19:53 Inflate balloon Inflation number: 1 A EUPHORA 3.0 x 20 Balloon ([id number]) was prepped and advanced across the Prox CX, then inflated to 15 KIRSTIE for 0:13 (min:sec). 15:19:59 Inflation number: 2 The EUPHORA 3.0 x 20 Balloon ([id number]) was reinflated across the Prox CX, to 15 KIRSTIE for 0:00 (min:sec). 15:20:43 Balloon removed over the wire. 15:21:54 The INTEGRITY RX 3.0 x 26 stent ([id number]) was advanced then removed because of failure to cross lesion 15:22:19 ADDITIONAL WIRE ADVANCED WITH STENT 15:22:55 Stent catheter was removed intact over wire. 15:24:28 Inflate balloon Inflation number: 1 A EUPHORA 3.5 x 30 Balloon ([id number]) was prepped and advanced across the Undefined1, then inflated to 15 KIRSTIE for 0:09 (min:sec). 15:24:49 Inflation number: 2 The EUPHORA 3.5 x 30 Balloon ([id number]) was reinflated across the Undefined1, to 15 KIRSTIE for 0:11 (min:sec). 15:26:35 Balloon removed over the wire. 15:28:07 REMOVE BRAYDEN WIRE 15:28:21 Place stent Inflation Number: 3 A INTEGRITY RX 3.0 x 15 stent ([id number]) was prepped and advanced across the Prox CX. The stent was deployed at 21 KIRSTIE for 0:08 (min:sec). 15:28:54 Balloon removed over the wire. 15:30:27 Place stent Inflation Number: 4 A INTEGRITY RX 3.0 x 15 stent ([id number]) was prepped and advanced across the Prox CX. The stent was deployed at 21 KIRSTIE for 0:07 (min:sec). 15:30:54 EXOSEAL 6Fr (EX600) opened to sterile field. 15:32:41 Wire removed. 15:32:42 Guide catheter removed. 15:32:54 Sheath removed intact; hemostasis achieved with Exoseal to the Right Femoral artery. 15:32:57 Procedure ended.(Physican Out) 15:33:16 Fluoroscopy time 10.10 minutes. 15:33:21 Fluoroscopy dose: 1265 mGy 15:33:21 Flurop Dose total: 1265 15:33:37 Contrast amount:Isovue 300 156ml. 15:33:39 Sharps counted by scrub and verified by R.N. 15:33:49 Insertion/operative site no bleeding no hematoma. 15:33:51 Post Procedure Pulses reassessed and unchanged 15:33:58 Post-procedure physical assessment completed. ASA score P 2 - A patient with mild systemic disease as per Wilfredo Hawk MD. 15:34:06 Post procedure rhythm: unchanged. 15:34:27 Estimated blood loss: 10 ml 15:34:33 Post procedure instruction explained to patient.Patient verbalizes understanding. 15:34:53 Procedure type changed to Cath procedure, Diagnostic procedure, LHC, LHC w/Coronaries w/Grafts, PCI procedure, Coronary Stent, Coronary Stent Initial 15:34:55 Procedure and supply charges have been captured, reviewed, submitted and are correct. 15:35:05 Plavix 600 mg P.O. was administered by Kirit Elias RN; for antiplatelet therapy; 15:35:14 Procedure Complication : No complications 15:35:17 Vital chart was stopped 15:35:18 See physician's report for complete and final results. 15:35:21 Report given to Pre/Post Procedure Room. 15:35:26 Patient transfered to [facility] with Stretcher. 15:35:29 Procedure ended. 15:35:29 Full Disclosure recording stopped 15:35:44 ACC-PCI Only Patient was given prescriptions, or instructed by Wilfredo Hawk MD to start/continue the following medications upon discharge: Plavix Intervention Summary Intervention Notes Time ActionType Lesion and Equipment Action# Pressure Duration Attributes Used 15:19:53 Inflate Prox CX EUPHORA 3.0 1 15 00:13 balloon x 20 Balloon ([id number]) 15:19:59 Reinflate Prox CX EUPHORA 3.0 2 15 00:00 balloon x 20 Balloon ([id number]) 15:21:54 Discard Prox CX INTEGRITY RX Stent 3.0 x 26 stent ([id number]) 15:24:28 Inflate Undefined1 EUPHORA 3.5 1 15 00:09 balloon x 30 Balloon ([id number]) 15:24:49 Reinflate Undefined1 EUPHORA 3.5 2 15 00:11 balloon x 30 Balloon ([id number]) 15:28:21 Place stent Prox CX INTEGRITY RX 3 21 00:08 3.0 x 15 stent ([id number]) 15:30:27 Place stent Prox CX INTEGRITY RX 4 21 00:07 3.0 x 15 stent ([id number]) Device Usage Item Name Manufacture Quantity Catalog Number [facility] Part Current M inimal Lot# / Charge Number Stock Stock Serial# Code ACIST Syringe Acist 1 33419 337787 784048 880654 2 0 (42374) [employer] Bag Decanter Microtek 1 109879 89916 920739 5 () Medical Inc. Medline Cath Cardinal 1 [id number] 446145 34967 376895 5 Savvify ([id number]) DIAGNOSTIC WIRE [facility] 1 816835 236836 830547 891214 3 0 .035 260cm J wire (477565) ACIST Hand Acist 1 47285 369959 445190 128095 5 Control (56800) [employer] ACIST Manifold Acist 1 69759 569860 139812 616767 5 (93151) [employer] DIAGNOSTIC Cardinal 1 MW1698 421808 83648 212327 3 0 Multipack 5Fr Health catheter set (GT7480) Tegaderm 4 x 4 3M 1 1626W 844641 204582 114324 5 (1626W) PERCUTANEOUS [employer] 1 U28572 013758 260747 5 ENTRY 19GA needle SHEATH Prelude Merit 1 NTQ-2I-18-035 062807 659951 345850 5 5Fr 0.035 Medical (ZPQ-3S-42-035) MULTIPACK Cardinal 1 037210 5 Pigtail 5 Fr Health catheter MULTIPACK JL Cardinal 1 167890 5 4.0 5Fr Health catheter MULTIPACK 3DRC Cardinal 1 366422 5 5Fr catheter Health GUIDE 5FR AR Medtronic 1 [id number] 343405 733218 236107 1 2.0 catheter ([id number]) GUIDE 6FR XBLAD Cardinal 1 [id number] 740487 405823 503529 3 4.0 catheter [employer] ([id number]) EUPHORA 3.0 x Medtronic 1 [id number] 844899 779395 337380 5 [id number] 20 Balloon ([id number]) INTEGRITY RX Medtronic 1 [id number] 770110 378495 751543 5 [id number] 3.0 x 26 stent ([id number]) EUPHORA 3.5 x Medtronic 1 [id number] 873790 386904 909456 5 [id number] 30 Balloon ([id number]) INTEGRITY RX Medtronic 2 [id number] 307952 452940 066614 5 [id number] 3.0 x 15 stent [id number] ([id number]) EXOSEAL 6Fr Cardinal 1 EX600 862072 149390 434049 1 0 (EX600) Health Signature Audit [place] Stage Time Signature Unsigned Intra-Procedure 12/27/2017 Anat Castellanos 3:37:30 PM RT(R) Signatures Monitor : Anat Castellanos Signature : RT Date : Time : [facility] [address] [place] [address]
[2017-12-27] MEDS ORDERED: CARDIZEM120 MG PO (08:25)
[2017-12-27 09:00] LABS: BASOPHILS 0.1 % (0-2); EOSINOPHILS 0 % (0-7); HEMATOCRIT 38.9 % (42.0-54.0); HEMOGLOBIN 13.1 g/dL (13.5-17.5); IMMATURE GRANULOCYTES 0.3 % (0-5); LYMPHOCYTES 28.3 % (15-50); MCH 30.9 pg (26.0-34.0); MCHC 33.7 g/dL (31.0-37.0); MCV 91.7 fL (80.0-100.0); NEUTROPHILS 62.3 % (40-80); PLATELET COUNT 197 10x3/uL (130-400); RBC 4.24 10x6/uL (4.20-6.10); RDW 13.8 % (11.5-14.5); WBC 7.1 10x3/uL (4.8-10.8)
[2017-12-27 09:04] LABS: APTT 24.5 SECONDS (22.8-39.4); INR 1.08 (0.85-1.17); PROTIME 13.6 SECONDS (11.6-15.0)
[2017-12-27 09:05] LABS: ALBUMIN 3.2 g/dL (3.4-5.0); ALKALINE PHOSPHATASE 85 U/L (46-116); ALT (SGPT) 20 U/L (10-68); BILIRUBIN - TOTAL 0.98 mg/dL (0.2-1.3); CALC OSMOLALITY 276 mosm/kg (275-300); CALCIUM 8.5 mg/dL (8.5-10.1); CARBON DIOXIDE 27.4 mmol/L (21.0-32.0); CHLORIDE - SERUM 100 mmol/L (98-107); CREATININE - SERUM 1.1 mg/dL (0.6-1.3); D-DIMER-QUANTITATIVE 1.14 ug/mLFEU (0.20-0.54); GLUCOSE 143 mg/dL (74-106); POTASSIUM - SERUM 3.6 mmol/L (3.5-5.1); PROTEIN - SERUM 6.7 g/dL (6.4-8.2); SODIUM 137 mmol/L (136-145); UREA NITROGEN 16 mg/dL (7-18); eGFR NON AFRICAN AMERICAN 68 mL/min (90-120)
[2017-12-27 09:25] LABS: AMYLASE - SERUM 45 U/L (25-115); CKMB 0.9 U/L (0.0-3.6); CREATINE KINASE 136 UL (21-232); LIPASE 111 U/L (73-393)
[2017-12-27 09:26] LABS: TROPONIN-I < 0.017 ng/mL (0.000-0.060)
[2017-12-27 13:43] VITALS: BP 155/99
[2017-12-27 13:48] VITALS: BP 118/68
[2017-12-27 16:23] VITALS: BP 132/84; BMI 23.0
[2017-12-27] MEDS ORDERED: BAYER CHEWABLE81 MG PO (16:30)
[2017-12-27 20:00] VITALS: BP 139/75
[2017-12-27] MEDS ORDERED: LASIX20 MG PO (20:12)
[2017-12-28] VITALS: BP 111/66
[2017-12-28 04:00] VITALS: BP 129/65
[2017-12-28 04:48] LABS: BASOPHILS 0.2 % (0-2); EOSINOPHILS 0.4 % (0-7); HEMATOCRIT 37.7 % (42.0-54.0); HEMOGLOBIN 12.8 g/dL (13.5-17.5); IMMATURE GRANULOCYTES 0.2 % (0-5); LYMPHOCYTES 25.4 % (15-50); MCH 31.2 pg (26.0-34.0); MEAN PLATELET VOLUME 9.9 fL (7.4-10.4); MONOCYTES 10.5 % (2-11); NEUTROPHILS 63.3 % (40-80); PLATELET COUNT 177 10x3/uL (130-400); RDW 14.1 % (11.5-14.5)
[2017-12-28 04:57] LABS: WBC 5.2 10x3/uL (4.8-10.8)
[2017-12-28 05:20] LABS: ALBUMIN 2.8 g/dL (3.4-5.0); ANION GAP 13.7 mmol/L (8-16); BILIRUBIN - TOTAL 0.8 mg/dL (0.2-1.3); CALCIUM 8.3 mg/dL (8.5-10.1); CARBON DIOXIDE 26.1 mmol/L (21.0-32.0); CREATININE - SERUM 1.1 mg/dL (0.6-1.3); POTASSIUM - SERUM 3.8 mmol/L (3.5-5.1); PROTEIN - SERUM 6.1 g/dL (6.4-8.2)
[2017-12-28 10:39] VITALS: Ht 180.3 cm; Wt 75.0 kg
[2017-12-28 21:20] VITALS: BP 127/66
[2017-12-29 05:57] LABS: BASOPHILS 0.3 % (0-2); EOSINOPHILS 1.3 % (0-7); HEMATOCRIT 37.6 % (42.0-54.0); HEMOGLOBIN 12.4 g/dL (13.5-17.5); IMMATURE GRANULOCYTES 0.3 % (0-5); LYMPHOCYTES 23.5 % (15-50); MCH 30.5 pg (26.0-34.0); MCV 92.6 fL (80.0-100.0); MEAN PLATELET VOLUME 9.9 fL (7.4-10.4); MONOCYTES 14.1 % (2-11); NEUTROPHILS 60.5 % (40-80); PLATELET COUNT 158 10x3/uL (130-400); RBC 4.06 10x6/uL (4.20-6.10)
[2017-12-29 05:59] VITALS: BP 112/59; BP 127/66
[2017-12-29 06:01] LABS: WBC 6.8 10x3/uL (4.8-10.8)
[2017-12-29 06:14] LABS: ANION GAP 10.9 mmol/L (8-16); CALCIUM 8.4 mg/dL (8.5-10.1); CARBON DIOXIDE 29.8 mmol/L (21.0-32.0); CREATININE - SERUM 1.1 mg/dL (0.6-1.3); POTASSIUM - SERUM 3.7 mmol/L (3.5-5.1)
[2017-12-29 06:23] LABS: APPEARANCE CLEAR (CLEAR); BILIRUBIN NEGATIVE (NEGATIVE); COLOR YELLOW (YELLOW); GLUCOSE NEGATIVE (NEGATIVE); KETONE NEGATIVE (NEGATIVE); NITRITE NEGATIVE (NEGATIVE); PROTEIN NEGATIVE (NEGATIVE); SPECIFIC GRAVITY 1.005 (1.005-1.020); UROBILINOGEN NORMAL (NORMAL)
[2017-12-29 08:01] VITALS: BP 174/60
[2017-12-29] MEDS ORDERED: LEVAQUIN750 MG PO (08:55)
[2017-12-29] MEDS ORDERED: FLAGYL500 MG PO (08:55)
[2017-12-29] MEDS ORDERED: PLAVIX75 MG PO (08:56)
== END 2017-12-29 14:01 | disposition home or self-care (01) | DRG 249 ==
LOC: D.ER 08:18 → D.CATH 08:18 → D.M2 08:18 → D.ER 14:42 → EDSTATUS 14:43 → D.M2 14:48 → D.CATH 16:21 → D.M2 16:21 → D.CATH 12-28 16:55 → D.M2 12-28 16:55 → D.CATH 12-28 16:56 → D.M2 12-29 14:01 → EDSTATUS 12-31 11:15
PROVIDERS: Family Medicine; Internal Medicine Interventional Cardiology
PROC: B2111ZZ Fluoroscopy of Multiple Coronary Arteries using Low Osmolar Contrast (ICD-10-PCS; 2017-12-27)
PROC: B2181ZZ Fluoroscopy of Left Internal Mammary Bypass Graft using Low Osmolar Contrast (ICD-10-PCS; 2017-12-27)
PROC: B2151ZZ Fluoroscopy of Left Heart using Low Osmolar Contrast (ICD-10-PCS; 2017-12-27)
PROC: 02703DZ Dilation of Coronary Artery, One Artery with Intraluminal Device, Percutaneous Approach (ICD-10-PCS; principal; 2017-12-27 11:15)
PROC: 4A023N7 Measurement of Cardiac Sampling and Pressure, Left Heart, Percutaneous Approach (ICD-10-PCS; 2017-12-27 11:15)
DX: I25.119 Atherosclerotic heart disease of native coronary artery with unspecified angina pectoris (principal); K57.92 Diverticulitis of intestine, part unspecified, without perforation or abscess without bleeding; Z95.1 Presence of aortocoronary bypass graft; E78.5 Hyperlipidemia, unspecified; I10 Essential (primary) hypertension; Z86.73 Personal history of transient ischemic attack (TIA), and cerebral infarction without residual deficits; E11.9 Type 2 diabetes mellitus without complications; Z95.0 Presence of cardiac pacemaker

== ENCOUNTER 2018-03-20 02:26 | Emergency (ER) | payer MEDICARE ==
[2017-12-28 10:39] VITALS: BMI 23.0
[~2018-03-20 02:26] MED LIST changes: +BAYER CHEWABLE81 MG PO; +CARDIZEM120 MG PO; +FLAGYL500 MG PO; +LASIX20 MG PO; +LEVAQUIN750 MG PO; +PLAVIX75 MG PO
[2018-03-20 03:35] LABS: BASOPHILS 0.3 % (0-2); EOSINOPHILS 0.9 % (0-7); IMMATURE GRANULOCYTES 0.4 % (0-5); LYMPHOCYTES 31.6 % (15-50); MCH 31.4 pg (26.0-34.0); MCHC 33.3 g/dL (31.0-37.0); MCV 94.2 fL (80.0-100.0); MEAN PLATELET VOLUME 9.6 fL (7.4-10.4); MONOCYTES 9.1 % (2-11); NEUTROPHILS 57.7 % (40-80); RBC 4.14 10x6/uL (4.20-6.10); RDW 14.7 % (11.5-14.5); WBC 7.9 10x3/uL (4.8-10.8)
[2018-03-20 03:36] LABS: PLATELET COUNT 205 10x3/uL (130-400)
[2018-03-20 03:50] LABS: ALBUMIN 3.3 g/dL (3.4-5.0); ALKALINE PHOSPHATASE 85 U/L (46-116); ALT (SGPT) 19 U/L (10-68); BILIRUBIN - TOTAL 0.46 mg/dL (0.2-1.3); CALC OSMOLALITY 282 mosm/kg (275-300); CALCIUM 8.8 mg/dL (8.5-10.1); CARBON DIOXIDE 25.7 mmol/L (21.0-32.0); CHLORIDE - SERUM 100 mmol/L (98-107); CREATININE - SERUM 1.1 mg/dL (0.6-1.3); GLUCOSE 173 mg/dL (74-106); POTASSIUM - SERUM 3.7 mmol/L (3.5-5.1); SODIUM 139 mmol/L (136-145); UREA NITROGEN 16 mg/dL (7-18); eGFR NON AFRICAN AMERICAN 68 mL/min (90-120)
[2018-03-20 04:01] LABS: CKMB 1.2 U/L (0.0-3.6); CREATINE KINASE 52 UL (21-232); TROPONIN-I 0.018 ng/mL (0.000-0.060)
[2018-03-20 08:09] VITALS: BP 158/75
== END 2018-03-20 08:09 | disposition home or self-care (01) ==
LOC: D.ER 02:26
PROVIDERS: Family Medicine
DX: R07.9 Chest pain, unspecified (principal); Z86.73 Personal history of transient ischemic attack (TIA), and cerebral infarction without residual deficits; E11.9 Type 2 diabetes mellitus without complications; Z95.0 Presence of cardiac pacemaker; Z95.1 Presence of aortocoronary bypass graft